=== PATIENT | male | born 1985 | race Two or more races ===

== ENCOUNTER 2023-09-05 09:39 | Emergency (ER) | payer MEDICAID, SELFPAY ==
[2023-09-05] VITALS (7 sets, daily range): BP systolic 113–141; BP diastolic 70–99; PULSE 75–110; RESP 15–17; TEMP 36.3–36.8; O2SAT 96–100; BMI 20.2
--- NOTE | ~2023-09-05 | US_ITS ---
EXAMINATION: US ABDOMEN LIMITED CLINICAL INFORMATION: Right upper quadrant pain. COMPARISON: None available. TECHNIQUE: Real-time imaging of the gallbladder and common bile duct FINDINGS: The gallbladder is normal in size. No gallstones. Normal thickness gallbladder wall. No pericholecystic fluid. The common bile duct is normal in caliber measuring 4 mm. US/US abdomen limited IMPRESSION: Normal gallbladder and common bile duct.
[2023-09-05 11:15] LABS: MANUAL DIFF FLAG NO
[2023-09-05 11:18] LABS: Basophils Absolute Auto 0.1 X10*3/uL (0.0-0.2); Basophils Percent Auto 0.7 % (0-2); Eosinophils Absolute Auto 0.1 X10*3/uL (0.0-0.4); Eosinophils Percent Auto 0.8 % (0-4); Hematocrit 53.5 % (42.0-52.0); Hemoglobin 18.7 g/dl (14.0-18.0); Imm Gran Abs Auto 0.03 X10*3/uL (0.00-0.03); Imm Gran Pct Auto 0.3 % (0.0-0.4); Lymphocytes Absolute Auto 2.3 X10*3/uL (1.2-4.9); Lymphocytes Percent Auto 25.4 % (20-40); Mean Corpuscular Hemoglobin 28.9 pg (27.0-33.0); Mean Corpuscular Volume 82.8 fL (80.0-98.0); Mean Platelet Volume 9.9 fL (9.4-12.4); Monocytes Absolute Auto 0.7 X10*3/uL (0.1-1.2); Monocytes Percent Auto 7.2 % (2-11); Neutrophils Absolute Auto 5.9 x10*3/uL (2.0-8.3); Neutrophils Percent Auto 65.6 % (45-73); Platelet Count 321 X10*3/uL (160-400); Red Blood Count 6.46 X10*6/uL (4.60-5.80); Red Cell Distribution Width 13.1 % (11.0-16.0)
[2023-09-05 11:33] LABS: Alanine Aminotransferase 36 U/L (0-40); Albumin Level 4.9 g/dL (3.5-5.0); Alkaline Phosphatase 128 U/L (39-117); Anion Gap 19 (12-20); Aspartate Amino Transferase 11 U/L (5-37); Beta-Hydroxybutyrate 3.97 mmol/L (0.02-0.27); Bilirubin Total 0.7 mg/dL (0.0-1.0); Blood Urea Nitrogen 16 mg/dL (9-16); Calcium 11.2 mg/dL (8.4-10.2); Carbon Dioxide 22 mmol/L (22-29); Chloride 101 mmol/L (96-108); Estimated Glomerular Filt Rate > 60; Glucose Random 335 mg/dL (60-115); Lipase 25 U/L (8-78); Potassium 3.9 mmol/L (3.3-5.1); Sodium 138 mmol/L (135-145); Total Protein 8.5 g/dL (6.5-8.0)
[2023-09-05 12:05] LABS: Influenza A PCR NEGATIVE (Negative); Influenza B PCR NEGATIVE (Negative); Resp Syncy Virus RNA Qual PCR NEGATIVE (Negative); SARS COV2 PCR INHOUSE NEGATIVE (Negative)
--- NOTE | 2023-09-05 16:19 | ED.GENADULT ---
HPI - General Adult General Chief complaint: Nausea/Vomiting/Diarrhea Stated complaint: Vomiting/Neck pain/Hard to walk Time Seen by Provider: 09/05/23 16:51 Source: patient, family ( acting as paraprofessional interpreter, declined interpreting services), RN notes reviewed and old records reviewed Mode of arrival: ambulatory Limitations: language barrier History of Present Illness ED Provider: Candace BRADLEY narrative: 37-year-old male with past medical history significant for type 2 diabetes presents for evaluation of vomiting. Patient has been vomiting for last 2 weeks He reports neck pain that is worse when the neck is straight He feels more comfortable when he bends his neck forward towards his chest He denies any fevers, chills He reports mild generalized abdominal pain after vomiting Denies any history abdominal surgeries Denies any coughing, shortness of breath Plants or concerns at this time Related Data Previous Rx's ?Medication ?Instructions ?Recorded cyclobenzaprine 10 mg tablet 10 mg PO TID PRN muscle spasm #15 09/05/23 tabs ondansetron 4 mg disintegrating 4 mg PO Q8H PRN nausea and 09/05/23 tablet vomiting #20 tabs Allergies Allergy/AdvReac Type Severity Reaction Status Date / Time No Known Allergies Allergy Verified 09/05/23 10:15 Review of Systems Constitutional: Constitutional: Reports body ache(s), Denies chills and Reports headache(s) ENT: Reports headache(s), Reports neck pain and Denies sore throat Cardiovascular: Cardiovascular: Denies chest pain and Denies dyspnea Respiratory: Respiratory: Denies cough and Denies dyspnea Gastrointestinal: Gastrointestinal: Reports abdominal pain, Reports nausea and Reports vomiting Musculoskeletal: Musculoskeletal: Reports neck pain and Reports stiffness Integumentary/Breasts: Skin/Breast: Denies rash Neurologic: Reports headache(s) PMFSH Social History Social History Advance Directives: No Advance Directives Information Provided: No Do you have a plan to hurt others: No Plan Physical Exam ED Vital Signs: Vital Signs - 24 hr 09/05/23 10:14 09/05/23 16:16 09/05/23 20:01 Temperature 97.3 F 98.2 F 97.7 F Pulse Rate 98 110 H 86 Respiratory Rate 16 16 17 Blood Pressure 135/87 141/99 H 122/80 Pulse Oximetry 98 100 97 Oxygen Delivery Method Room Air Room Air Room Air 09/05/23 21:42 09/05/23 21:42 09/05/23 22:21 Temperature 97.8 F Pulse Rate 75 90 75 Respiratory Rate 15 Blood Pressure 113/71 116/79 116/79 Pulse Oximetry 96 Oxygen Delivery Method Room Air BMI result Body Mass Index 20.2 Const General: healthy appearing, comfortable, no acute distress, alert and awake Nutritional Appearance: well nourished Orientation/consciousness: patient oriented x3 HENMT Head: Yes normocephalic and Yes atraumatic Eyes Eyelids: Yes eyelids normal Conjunctivae: conjunctivae normal Sclerae: sclerae normal Corneas: corneas normal Pupils: Equal, round and reactive pupils present EOM: EOMs intact bilaterally Neck Neck: No positive Brudzinski's sign and No positive Kernig's sign Resp Effort & Inspection: normal respiratory effort, able to speak in complete sentences and not labored Cardio Rate: regular rate Rhythm: regular rhythm GI Inspection: No distended Palpation (GI): Soft to palpation, not firm, Tenderness to palpation present (GI) (Tenderness in the right upper quadrant without guarding) in the RUQ, no guarding and not rigid Skin General skin exam: elasticity normal Neuro General: patient oriented x3 Cranial nerves: Yes Equal, round and reactive pupils present and Yes Bilaterally intact EOM present Cognition (Neuro): normal cognition Extrem Other: Moving all extremities well without any obvious deformities Course Course Course Narrative: RME performed by Radha Durán PA-C. Patient is a 37 year old assigned male at presenting to the emergency department with nausea and vomiting. Patient states that over the last 2 weeks he has had worsening nausea and vomiting. Detailed physical exam and review of systems are deferred to the trailhead construction worker. Labs and swabs ordered. Patient placed back in the waiting room pending room availability and results. Reevaluation(s) Reevaluation #1: Patient re-evaluated and resting comfortably, he was not orthostatic, his gallbladder ultrasound was normal. He has not had any further vomiting. Plan to discharge the patient home with Zofran and cyclobenzaprine for a likely cervical strain of the right side of his neck. GI for his vomiting for the last 2 weeks Time: 22:33 Medications Administered Discontinued Medications Generic Name Dose Route Start Last Admin Trade Name Freq PRN Reason Stop Dose Admin Acetaminophen 650 mg 09/05/23 16:21 09/05/23 16:23 Acetaminophen 325 Mg Tablet PO 09/05/23 16:22 650 mg ONCE ONE Administration Cyclobenzaprine HCl 10 mg 09/05/23 21:13 09/05/23 21:27 Cyclobenzaprine Hcl 10 Mg Tablet PO 09/05/23 21:14 10 mg ONCE ONE Administration Sodium Chloride 1,000 mls @ 999 mls/hr 09/05/23 17:30 09/05/23 20:00 Ns IV 09/05/23 19:30 Infused .Q1H1M LILIAN Infusion Sodium Chloride 1,000 mls @ 999 mls/hr 09/05/23 21:15 09/05/23 21:20 Ns IV 09/05/23 22:15 999 mls/hr .Q1H1M LILIAN Administration Ketorolac Tromethamine 30 mg 09/05/23 17:32 09/05/23 17:35 Ketorolac Tromethamine 30 Mg/Ml Vial IVPUSH 09/05/23 17:33 30 mg ONCE ONE Administration Ondansetron HCl 4 mg 09/05/23 16:21 09/05/23 16:23 Ondansetron Odt 4 Mg Tab.Rapdis TRANSLINGU 09/05/23 16:22 4 mg ONCE ONE Administration Medical Decision Making Medical Decision Making MDM Narrative: 37-year-old male presents for evaluation of vomiting, neck pain, headache. He has a type 2 diabetic, he denies any fevers or chills. Denies any respiratory symptoms. He is tender right upper quadrant therefore we will get an ultrasound of the gallbladder to evaluate for biliary disease. His labs are significant for an elevated hemoglobin and hematocrit likely due to dehydration. He has no leukocytosis or left shift. Patient's electrolytes are within normal limits, his glucose is elevated to 335 and he has a known history of diabetes but no evidence of DKA. His calcium is elevated to 11.2, again likely due to dehydration. Alk-phos is elevated to 128. Patient's beta hydroxybutyrate is elevated to 3.97 possibly related to some degree of starvation ketosis from his vomiting and poor oral intake Differential Diagnosis Differential Diagnoses: The differential diagnosis associated with the presentation includes Gastroenteritis Dehydration Biliary colic Cholecystitis Cholelithiasis Pancreatitis Lab Data MDM Lab Attestation statement: I reviewed the patient's lab results. See medical decision making above 09/05/23 10:41 09/05/23 10:41 Labs: Lab Results 09/05/23 09/05/23 09/05/23 Range/Units 10:41 17:19 17:21 WBC 9.0 (4.8-10.8) X10*3/uL RBC 6.46 H (4.60-5.80) X10*6/uL Hgb 18.7 H (14.0-18.0) g/dl Hct 53.5 H (42.0-52.0) % MCV 82.8 (80.0-98.0) fL MCH 28.9 (27.0-33.0) pg MCHC 35.0 (31.0-36.0) g/dl RDW 13.1 (11.0-16.0) % Plt Count 321 (160-400) X10*3/uL MPV 9.9 (9.4-12.4) fL Immature Gran % (Auto) 0.3 (0.0-0.4) % Neut % (Auto) 65.6 (45-73) % Lymph % (Auto) 25.4 (20-40) % [place] % (Auto) 7.2 (2-11) % Eos % (Auto) 0.8 (0-4) % Baso % (Auto) 0.7 (0-2) % Lymph # (Auto) 2.3 (1.2-4.9) X10*3/uL [place] # (Auto) 0.7 (0.1-1.2) X10*3/uL Eos # (Auto) 0.1 (0.0-0.4) X10*3/uL Baso # (Auto) 0.1 (0.0-0.2) X10*3/uL Abs Immat Gran (auto) 0.03 (0.00-0.03) X10*3/uL Absolute Neuts (auto) 5.9 (2.0-8.3) x10*3/uL Absolute Nucleated RBC 0.000 (0.0-0.012) X10*3/uL Nucleated RBC % (auto) 0.0 (0.0-0.2) /100WBC VBG pH 7.39 (7.32-7.43) VBG pCO2 30 mmHg VBG pO2 62 mmHg VBG HCO3 18 L (22-26) mmol/L VBG O2 Saturation 89.0 % VBG Base Excess -4.9 mmol/L Sodium 138 (135-145) mmol/L Potassium 3.9 (3.3-5.1) mmol/L Chloride 101 (96-108) mmol/L Carbon Dioxide 22 (22-29) mmol/L Anion Gap 19 (12-20) BUN 16 (9-16) mg/dL Creatinine 1.13 (0.5-1.4) mg/dL Estim Creat Clear Calc 81.0 Estimated GFR > 60 Random Glucose 335 H (60-115) mg/dL Lactic Acid 1.9 (0.5-2.0) mmol/L Calcium 11.2 H (8.4-10.2) mg/dL Total Bilirubin 0.7 (0.0-1.0) mg/dL AST 11 (5-37) U/L ALT 36 (0-40) U/L Alkaline Phosphatase 128 H (39-117) U/L Total Protein 8.5 H (6.5-8.0) g/dL Albumin 4.9 (3.5-5.0) g/dL Lipase 25 (8-78) U/L Beta-Hydroxybutyrate 3.97 H (0.02-0.27) mmol/L Influenza Type A (PCR) NEGATIVE (Negative) Influenza Type B (PCR) NEGATIVE (Negative) RSV RNA Qual (PCR) NEGATIVE (Negative) SARS-CoV-2 RNA (RT-PCR) NEGATIVE (Negative) Discharge Plan Discharge Clinical Impression: Vomiting, Type 2 diabetes mellitus, Acute neck pain Patient Disposition: Home, Self-Care Instructions: Acute Nausea and Vomiting (ED), Neck Pain (ED) Additional Instructions: Your workup in the ER today was reassuring. Your labs appear to show that you were dehydrated in your given lots of IV fluids Use Zofran as needed for nausea/vomiting. Take cyclobenzaprine as needed for pain in your neck/muscle spasms Follow-up with GI for your persistent vomiting Return for new or worsening symptoms Prescriptions: New ondansetron 4 mg tablet,disintegrating 4 mg PO Q8H PRN (Reason: nausea and vomiting) Qty: 20 0RF cyclobenzaprine 10 mg tablet 10 mg PO TID PRN (Reason: muscle spasm) Qty: 15 0RF Print Language: Yi
[2023-09-05] MEDS: Ondansetron ODT 4 MG TAB.RAPDIS TRANSLINGU (16:23)
[2023-09-05] MEDS: Acetaminophen 325 MG TABLET 650 MG PO (16:23)
[2023-09-05 17:27] LABS: VBG Base Excess -4.9 mmol/L; VBG HCO3 18 mmol/L (22-26); VBG pCO2 30 mmHg; VBG pH 7.39 (7.32-7.43); VBG pO2 62 mmHg
[2023-09-05 17:28] LABS: Venous Blood Gas Refer to POC result
[2023-09-05] MEDS: 0.9 % Sodium Chloride 1,000 ML 999 ML IV ×2 (17:30→21:20)
[2023-09-05] MEDS: Ketorolac Tromethamine 30 MG/ML VIAL IVPUSH (17:35)
[2023-09-05 17:43] LABS: Lactic Acid 1.9 mmol/L (0.5-2.0)
[2023-09-05] MEDS: 0.9 % Sodium Chloride 1,000 ML 1000 ML IV (18:35)
[2023-09-05] MEDS: Cyclobenzaprine HCl 10 MG TABLET PO (21:27)
--- NOTE | 2023-09-05 23:31 | MHC.EDTECH ---
Hourly rounds and vitals completed,patient is waiting to be discharged,call grajeda in reach
== END 2023-09-05 23:58 | disposition home or self-care (01) ==
PROVIDERS: Physician Assistant; Emergency Provider Internal Medicine
DX: R11.10 Vomiting, unspecified (principal); M54.2 Cervicalgia; E11.9 Type 2 diabetes mellitus without complications
CPT/HCPCS: 0241U; 36415; 76705; 80053; 82010; 82803; 83605; 83690; 85025; 96361; 96374; 99284; J1885

== ENCOUNTER 2024-11-21 10:17 | Outpatient (AMB) | payer MEDICAID, SELFPAY ==
--- NOTE | 2024-11-21 11:00 | A.OFFVIS_ITS ---
Intake Visit Reasons: Migraine Allergies No Known Allergies Allergy (Verified 09/05/23 10:15) Medication List - Last Reconciled 11/21/24 by Doc Morgan MD amitriptyline 75 mg PO DAILY atorvastatin (Lipitor) 40 mg PO DAILY cyclobenzaprine 10 mg PO TID PRN hydroxyzine HCl 10 mg PO BEDTIME metformin 1,000 mg PO DAILY ondansetron 4 mg PO Q8H PRN HPI Comments Details: This is a 38-year-old man who was accompanied by his mother who acted as an interpretor.? 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 Velia Cortes in August 2023.? His balance has improved but he still uses a cane.? Since then, he's had sharp right occipital pains going from the surgical incision up to the occipital area.? They occur several times during the day and last a few minutes.? He is tried gabapentin 100 mg which did not help.? Most recently he started amitriptyline 25 mg at bedtime in the last month, which has not helped much.? He has the difficulty sleeping at night and has had this long-term. [facility] Medical History (Updated 11/21/24 @ 11:03 by Doc Morgan MD) Cyst of brain Tension headache Review of Systems Const Details: Sleep:? Difficulty getting to sleepdenies.? Difficulty maintaining sleepdenies?.? Urge to move legsdenies.? Teeth grindingdenies.? Shouting or Kicking during sleep denies.? Abnormal behavior during sleepdenies.? Excessive sleepdenies.? Snoring denies.? Daytime sleepinessdenies. ???General/Constitutional:? Change in appetitedenies.? Chillsdenies.? Fatiguedenies.? Feverdenies.? Weight gaindenies.? Weight lossdenies. ???Ophthalmologic:? Blurred visiondenies.? Diminished visual acuitydenies. ???ENT:? Stuffinessdenies.? Decreased hearingdenies.? Dry mouthdenies.? Ear paindenies.? Nosebleeddenies.? Ringing in the earsdenies.? Sinus paindenies.? Sore throat denies.? Swollen glandsdenies. ???Endocrine:? Cold intolerancedenies.? Excessive thirstdenies.? Frequent urinationdenies.? Heat intolerancedenies. ???Respiratory:? Shortness of breathdenies.? Chest paindenies.? Coughdenies. ???Breast:? Breast lumpdenies.? Nipple dischargedenies. ???Cardiovascular:? Chest pain at restdenies.? Chest pain with exertiondenies.? Claudicationdenies .? Dizzinessdenies.? Fluid accumulation in the legsdenies.? Irregular heartbeat denies.? Palpitationsdenies. ???Gastrointestinal:? Abdominal paindenies.? Constipationdenies.? Diarrheadenies.? Difficulty swallowingdenies.? Heartburndenies.? Nauseadenies.? Rectal bleedingdenies. ???Hematology:? Easy bruisingdenies.? Prolonged bleedingdenies. ???Genitourinary:? Frequent urinationdenies.? Urgencydenies.? Incontinencedenies.? Erectile Dysfunctiondenies. ???Musculoskeletal:? Neck paindenies.? Back paindenies.? Muscle achesdenies.? Painful jointsdenies.? Sciaticadenies.? Weaknessdenies. ???Podiatric:? Difficulty walkingdenies.? Foot numbnessdenies. ???Neurologic:? Difficulty swallowingdenies.? Balance difficultydenies.? Coordinationnormal.? Difficulty speakingdenies.? Dizzinessdenies.? Faintingdenies.? Gait abnormality denies.? Headachedenies.? Loss of strengthdenies.? Loss of use of extremity denies.? Low back paindenies.? Memory lossdenies.? Seizuresdenies.? Ticsdenies.? Tingling/Numbnessdenies.? Transient loss of visiondenies.? Tremordenies. ???Psychiatric:? Anxietydenies.? Auditory/visual hallucinationsdenies.? Delusionsdenies.? Depressed mooddenies.? Stressorsdenies.? Substance abusedenies.? Suicidal thoughtsdenies. Physical Exam Neuro Other: Neurological: Abnormal neurological findings:??none.?Mental Status:??alert and oriented X 3,?Normal attention, orientation, memory and affect.?Cranial Nerves:??Pupils are equal, round and reactive to light. Fundoscopy shows normal disc bilaterally. External occular muscles are intact. Visual sevilla are full, no ptosis. Face is symmetrical, no facial weakness or droop. Facial sensations are normal. Tongue protrudes in midline. Palate elevates symmetrically. Shoulder shrugging is normal..?Motor Examination:??Normal muscle tone, bulk and strength,?No atrophy or fasciculations,?No drift of the extended upper extremities,?Deep tendon reflexes are 2+?,?Plantars are flexor?.?Motor Strength:?Proximal Muscles (out of 5):5Distal Muscles (out of 5):5Neck Flexors (out of 5):5Neck Extensors (out of 5):5Deltoid (out of 5):5Biceps (out of 5):5Triceps (out of 5):5Serratus Anterior (out of 5):5Wrist Extensors (out of 5):5APB (out of 5):5Finger Spread (out of 5):5Ileopsoas (out of 5):5Quadriceps (out of 5):5Hamstrings (out of 5):5Tibialis Anterior (out of 5):5Peronei (out of 5):5EDB (out of 5):5Gastrocnemius (out of 5):5Straight Leg Raising:??90 degrees.?Sensory Exam:??Normal light touch, temperature, pinprick, vibration and joint-position sensations?,?Rhomberg sign is absent.?Coordination:??no ataxia,?no titubation,?[id number], [id number] test and rapid alternating movements were normal.?Gait Exam:??walks with a cane under normal-based gait.?Cerebellar Signs:??[id number]-[id number] and tgbh-kq-ulry is normal,?no d ysdiadochokinesia?.?Extrapyramidal System:??No tremor, rigidity with normal facial expressions,?No bradykinesia, no bradyphrenia. Normal arm swing and posture. No propulsion or retropulsion.?Speech:??Normal,?no dysphasia or dysarthria..? Mini Mental Status Exam: Level of Consciousness:??Alert.?Orientation:??Knows correct year, month, date, day and season,?Knows correct city, county and state. Knows correct location and floor.?Registration:??Able to register 3 objects.?Attention:??Serial 7's performed accurately.?Recall:??Able to recall 3 out of 3 objects.?Langu age:??Normal spontaneous speech, fluency, repetition,naming, comprehension, reading and writing.?Total Score:??30/30.? General Examination: GENERAL APPEARANCE:??normal,?in no acute distress.?HEAD:??normocephalic,?atraumatic.?EYES:??sclera non- icteric,?conjunctiva clear.?EARS:??auditory canal clear,?tympanic membrane intact, clear.?NOSE:??no lesions.?ORAL CAVITY:??gums normal,?mucosa moist,?no lesions.?THROAT:??clear.?NECK/THYROID:??no cervical lymphadenopathy,?thyroid normal,?neck supple, full range of motion,?no carotid bruit.?SKIN:??no rashes,?no significant birthmarks.?HEART:??S1, S2 normal,?no murmurs.?LUNGS:??clear anteriorly and posteriorly.?CHEST:??no gross rib deformity,?clear to auscultation.?BACK:??normal exam of spine.?EXTREMITIES:??no edema.?PERIPHERAL PULSES:??normal.?PSYCH:??alert, oriented,?cognitive function intact,?cooperative with exam.? 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
--- OUTSIDE RECORDS SUMMARY | 2024-11-21 11:06 | XMS_ITS ---
Author Name [facility] Organization Unknown Care Team Organization Name Specialty Phone Email Start Date End Da te [facility] 02/02/2022 11/14/2023
== END 2024-11-21 12:50 | disposition home or self-care (01) ==
PROVIDERS: PCP Internal Medicine; Referring Provider Internal Medicine; Visit Provider Psychiatry & Neurology Neurology
DX: G44.209 Tension-type headache, unspecified, not intractable (principal); G93.0 Cerebral cysts
CPT/HCPCS: 99214

== ENCOUNTER → 2024-11-21 10:17 | Outpatient (BNVA) | payer OTHER, SELFPAY | PROVIDERS: PCP Internal Medicine; Referring Provider Internal Medicine; Visit Provider Psychiatry & Neurology Neurology | DX: G93.0 Cerebral cysts (principal); G44.209 Tension-type headache, unspecified, not intractable | CPT/HCPCS: 99212 ==